=== PATIENT | female | born 1945 | race Caucasian/White ===

== ENCOUNTER 2020-09-12 16:05 | Emergency (ER) | payer MEDICARE ==
[~2020-09-12] VITALS: Ht 162.6 cm; Wt 66.5 kg
[~2020-09-12 16:05] MED LIST changes: -OMNIPAQUE 350 MG/ML, 100ML BOTTLE ONE
--- NOTE | 2020-09-12 16:35 | NUR ---
Pt in room, attached to BP and SpO2 at this time. IV start supplies at bedside but holding until MD sees pt secondary to pt having been seen, CT scanned, and labs drawn today at urgent care prior to arrival. Pt states MD dx of UTI provided at today but wants her to come here for further eval without further dx given. VSS, warm blanket provided and call light in reach.
--- NOTE | 2020-09-12 17:18 | NUR ---
Pt able to give clean catch UA sample. Gross blood in urine present without sediment or clots noted. science technicians at bedside at this time for lab draw as well.
[2020-09-12 17:32] LABS: MICROSCOPIC INDICATED
[2020-09-12 17:34] LABS: ALANINE AMINOTRANSFERASE 18 U/L (12-78); ALBUMIN 3.7 g/dL (3.4-5.0); ANION GAP 5 mmol/L (5-15); CHLORIDE 105 mmol/L (98-107); CREATININE 0.79 mg/dL (0.55-1.02)
[2020-09-12 17:36] LABS: ALKALINE PHOSPHATASE 32 U/L (45-117); BILIRUBIN,TOTAL 0.5 mg/dL (0.2-1.0)
[2020-09-12 17:37] LABS: BASOPHILS % (AUTO) 0 % (0-1); EOSINOPHILS % (AUTO) 1 % (1-7); LYMPHOCYTES % (AUTO) 26 % (22-44); MD NO; MEAN CORPUSCULAR HEMOGLOBIN 29.8 pg (27.0-34.8); MONOCYTES % (AUTO) 9 % (2-9); NEUTROPHILS % (AUTO) 64 % (42-75); PLATELET COUNT 202 x10^3/uL (130-400); RED CELL DISTRIBUTION WIDTH 13.5 % (9.6-15.2)
[2020-09-12 18:31] VITALS: BP 134/75
== END 2020-09-12 19:07 | disposition home or self-care (01) ==
LOC: ED 17:00
DX: C80.1 Malignant (primary) neoplasm, unspecified (principal); G89.29 Other chronic pain; R10.32 Left lower quadrant pain; R10.2 Pelvic and perineal pain; R11.2 Nausea with vomiting, unspecified; Z85.51 Personal history of malignant neoplasm of bladder; Z85.43 Personal history of malignant neoplasm of ovary
CPT/HCPCS: 36415; 80053; 81001; 85025; 87086; 99283

== ENCOUNTER → 2020-09-12 | Outpatient (CLI) | payer MEDICARE ==
[~2020-09-12] MED LIST: ACET-76 PO; ASCO100018 PO; ASPI-496 PO; CALC-112 PO; CEPH-368 PO; CETI-158 PO; CHOL2000 PO; CLOB50FO8 TP; GLUC-121 PO; IRON18TA PO; LORA1TAB PO; OMNIPAQUE 350 MG/ML, 100ML BOTTLE ONE; ONDA4TAB13 PO; OXYC-302 PO
[2020-09-12 14:23] LABS: ANION GAP 5 mmol/L (5-15); CALCIUM 9.1 mg/dL (8.5-10.1); CHLORIDE 106 mmol/L (98-107)
== END | disposition home or self-care (01) ==
LOC: RAD 13:52
PROVIDERS: ATTEND Nurse Practitioner Acute Care
DX: N13.30 Unspecified hydronephrosis (principal); N13.4 Hydroureter; N13.5 Crossing vessel and stricture of ureter without hydronephrosis; R10.9 Unspecified abdominal pain; N39.0 Urinary tract infection, site not specified; R11.2 Nausea with vomiting, unspecified; M62.08 Separation of muscle (nontraumatic), other site; Z90.710 Acquired absence of both cervix and uterus
CPT/HCPCS: 36415; 74177; 80048; Q9967

== ENCOUNTER → 2020-09-19 | Outpatient (CLI) | payer MEDICARE ==
[~2020-09-19] MED LIST changes: +Iron PO; +LISI-167 PO
[2020-09-19 09:39] LABS: INTERNATIONAL NORMALIZED RATIO 0.96 (0.93-1.1); PROTHROMBIN TIME 10.2 Seconds (9.6-11.5)
[2020-09-19 09:42] LABS: ALANINE AMINOTRANSFERASE 24 U/L (12-78); ALBUMIN 3.6 g/dL (3.4-5.0); ANION GAP 4 mmol/L (5-15); CALCIUM 8.7 mg/dL (8.5-10.1); CHLORIDE 112 mmol/L (98-107); CREATININE 0.63 mg/dL (0.55-1.02)
[2020-09-19 09:45] LABS: ALKALINE PHOSPHATASE 51 U/L (45-117); BILIRUBIN,TOTAL 0.4 mg/dL (0.2-1.0); TOTAL PROTEIN 6.9 g/dL (6.4-8.2)
[2020-09-19 09:57] LABS: BASOPHILS % (AUTO) 0 % (0-1); EOSINOPHILS % (AUTO) 3 % (1-7); LYMPHOCYTES % (AUTO) 26 % (22-44); MEAN CORPUSCULAR HEMOGLOBIN 30.1 pg (27.0-34.8); MEAN PLATELET VOLUME 11.1 fL (7.4-10.4); MONOCYTES % (AUTO) 8 % (2-9); NEUTROPHILS % (AUTO) 63 % (42-75); PLATELET COUNT 176 x10^3/uL (130-400); RED BLOOD COUNT 4.93 x10^6/uL (3.82-5.3); RED CELL DISTRIBUTION WIDTH 13.4 % (9.6-15.2)
[2020-09-19 10:53] LABS: MD NO
== END | disposition home or self-care (01) ==
LOC: STAR 08:06
PROVIDERS: ATTEND Specialist
DX: Z01.812 Encounter for preprocedural laboratory examination (principal); Z20.828 Contact with and (suspected) exposure to other viral communicable diseases; C67.9 Malignant neoplasm of bladder, unspecified; M51.34 Other intervertebral disc degeneration, thoracic region; R94.31 Abnormal electrocardiogram [ECG] [EKG]; I25.2 Old myocardial infarction
CPT/HCPCS: 71046; 80053; 85025; 85610; 85730; 87635; 93005

== ENCOUNTER 2020-10-15 12:38 | Outpatient (CLI) | payer MEDICARE ==
[~2020-10-15 12:38] MED LIST changes: -OXYC-302 PO; +OXYC1TAB14 PO
== END 2020-10-15 23:59 | disposition home or self-care (01) ==
LOC: RAD 12:38
PROVIDERS: ATTEND Nurse Practitioner Acute Care
DX: C56.9 Malignant neoplasm of unspecified ovary (principal); Z96.0 Presence of urogenital implants
CPT/HCPCS: 51600; 74430; Q9958

== ENCOUNTER → 2020-11-06 | Outpatient (CLI) | payer MEDICARE | END | disposition home or self-care (01) | LOC: RAD 11:33 | PROVIDERS: ATTEND Specialist | DX: C67.9 Malignant neoplasm of bladder, unspecified (principal); C56.9 Malignant neoplasm of unspecified ovary; R19.00 Intra-abdominal and pelvic swelling, mass and lump, unspecified site; R19.07 Generalized intra-abdominal and pelvic swelling, mass and lump; R97.1 Elevated cancer antigen 125 [CA 125]; R10.2 Pelvic and perineal pain; K43.9 Ventral hernia without obstruction or gangrene; R33.9 Retention of urine, unspecified; N20.0 Calculus of kidney | CPT/HCPCS: 74250 ==

== ENCOUNTER → 2020-11-13 | Outpatient (CLI) | payer MEDICARE ==
[~2020-11-13] MED LIST changes: +OMNIPAQUE 350 MG/ML, 100ML BOTTLE ONE
== END | disposition home or self-care (01) ==
LOC: CFH 12:15
PROVIDERS: ATTEND Specialist
DX: C56.9 Malignant neoplasm of unspecified ovary (principal); C67.9 Malignant neoplasm of bladder, unspecified; R19.00 Intra-abdominal and pelvic swelling, mass and lump, unspecified site; R19.07 Generalized intra-abdominal and pelvic swelling, mass and lump; R97.1 Elevated cancer antigen 125 [CA 125]; K43.9 Ventral hernia without obstruction or gangrene; R33.9 Retention of urine, unspecified; K21.9 Gastro-esophageal reflux disease without esophagitis; R10.2 Pelvic and perineal pain
CPT/HCPCS: 71260; 74177; Q9967

== ENCOUNTER 2020-11-18 09:02 | Day surgery (SDC) | payer MEDICARE ==
[~2020-11-18] VITALS: Ht 162.6 cm; Wt 60.9 kg
[~2020-11-18 09:02] MED LIST changes: -OMNIPAQUE 350 MG/ML, 100ML BOTTLE ONE
[2020-11-18] MEDS ORDERED: METO10TA2 PO (10:17)
[2020-11-18] MEDS ORDERED: OMEP10CA5 PO (10:17)
[2020-11-18] MEDS ORDERED: CIPR500T4 PO (10:17)
[2020-11-18] MEDS ORDERED: CHLORHEXIDINE 15 ML UDC ONE (10:22)
[2020-11-18] MEDS ORDERED: CHLORHEXIDINE 15 ML UDC MM ONE (10:30)
[2020-11-18 10:50] VITALS: BP 147/86
[2020-11-18] MEDS ORDERED: CEFOTETAN PMX 2GM/50ML 50 ML IVPB ONE (11:00)
[2020-11-18] MEDS ORDERED: LACTATED RINGERS 1,000 ML IV SCH (11:00)
[2020-11-18] MEDS ORDERED: FENTANYL PF 100 MCG/2ML ONE (11:05)
[2020-11-18] MEDS ORDERED: FENTANYL PF 100 MCG/2ML IV PRN (11:30)
[2020-11-18] MEDS ORDERED: OXYcodone 5 MG/5 ML ORAL.SOL UDC PO PRN (11:30)
[2020-11-18] MEDS ORDERED: ACETAMINOPHEN 325 MG TABLET PO PRN (11:30)
[2020-11-18] MEDS ORDERED: LORazepam 2 MG/ML, 1ML IVPush PRN (11:30)
[2020-11-18] MEDS ORDERED: PROMETHAZINE 25 MG/ML, 1ML IVPush PRN (11:30)
[2020-11-18] MEDS ORDERED: MEPERIDINE/PF 25MG/0.5ML IVPush PRN (11:30)
[2020-11-18] MEDS ORDERED: LABETALOL 5MG/ML, 20ML IV PRN (11:30)
[2020-11-18] MEDS ORDERED: HYDROmorphone 1 MG/ML, 1ML INJ IVPush PRN (11:30)
[2020-11-18] MEDS ORDERED: hydrALAzine 20 MG/ML, 1ML IV PRN (11:30)
[2020-11-18] MEDS ORDERED: ALBUTEROL SULFATE 2.5 MG/3 ML NPPB PRN (11:30)
[2020-11-18] MEDS ORDERED: ONDANSETRON 2MG/ML, 2ML ONE (12:44)
[2020-11-18] MEDS ORDERED: LIDOCAINE-MPF 2% ,5ML ONE (12:44)
[2020-11-18] MEDS ORDERED: PROPOFOL 10 MG/ML, 20ML ONE (12:44)
[2020-11-18] MEDS ORDERED: DEXAMETHASONE 4 MG/ML, 1ML ONE (16:34)
== END 2020-11-18 15:15 | disposition home or self-care (01) ==
LOC: OUT 09:02
PROVIDERS: ATTEND Specialist
DX: Z46.6 Encounter for fitting and adjustment of urinary device (principal); I10 Essential (primary) hypertension; I25.10 Atherosclerotic heart disease of native coronary artery without angina pectoris; D64.9 Anemia, unspecified; Z20.822 Contact with and (suspected) exposure to COVID-19; Z79.82 Long term (current) use of aspirin; Z85.51 Personal history of malignant neoplasm of bladder; Z79.899 Other long term (current) drug therapy; Z87.891 Personal history of nicotine dependence; Z88.0 Allergy status to penicillin; Z90.710 Acquired absence of both cervix and uterus; Z90.722 Acquired absence of ovaries, bilateral; Z90.49 Acquired absence of other specified parts of digestive tract
CPT/HCPCS: 52310; 87070; 87075; 87077; 87086; 87186; 87635; J1100; J2405; J2704; J3010; J7120

== ENCOUNTER 2021-01-01 12:31 | Outpatient (CLI) | payer MEDICARE ==
[~2021-01-01 12:31] MED LIST changes: +CIPR500T4 PO; +METO10TA2 PO; +OMEP10CA5 PO
== END 2021-01-01 23:59 | disposition home or self-care (01) ==
LOC: RAD 12:31
PROVIDERS: ATTEND Specialist
DX: C67.9 Malignant neoplasm of bladder, unspecified (principal); C56.9 Malignant neoplasm of unspecified ovary; R97.1 Elevated cancer antigen 125 [CA 125]; R10.2 Pelvic and perineal pain; N13.2 Hydronephrosis with renal and ureteral calculous obstruction; K43.9 Ventral hernia without obstruction or gangrene; R33.9 Retention of urine, unspecified; K21.9 Gastro-esophageal reflux disease without esophagitis; N39.0 Urinary tract infection, site not specified
CPT/HCPCS: 74270

== ENCOUNTER → 2021-01-14 | Outpatient (CLI) | payer MEDICARE ==
[2021-01-14 13:55] LABS: BASOPHILS % (AUTO) 1 % (0-1); EOSINOPHILS % (AUTO) 2 % (1-7); LYMPHOCYTES % (AUTO) 29 % (22-44); MD NO; MEAN CORPUSCULAR HEMOGLOBIN 28.2 pg (27.0-34.8); MEAN CORPUSCULAR HGB CONC 32.7 g/dL (32.4-35.8); MONOCYTES % (AUTO) 7 % (2-9); NEUTROPHILS % (AUTO) 61 % (42-75); PLATELET COUNT 161 x10^3/uL (130-400); RED CELL DISTRIBUTION WIDTH 17.2 % (9.6-15.2)
[2021-01-14 14:01] LABS: ALANINE AMINOTRANSFERASE 21 U/L (12-78); ALBUMIN 3.8 g/dL (3.4-5.0); ANION GAP 4 mmol/L (5-15); CALCIUM 8.5 mg/dL (8.5-10.1); CHLORIDE 109 mmol/L (98-107)
[2021-01-14 14:03] LABS: ALKALINE PHOSPHATASE 38 U/L (45-117); BILIRUBIN,TOTAL 0.3 mg/dL (0.2-1.0); INTERNATIONAL NORMALIZED RATIO 0.98 (0.93-1.1); PROTHROMBIN TIME 10.5 Seconds (9.6-11.5); TOTAL PROTEIN 7.4 g/dL (6.4-8.2)
== END | disposition home or self-care (01) ==
LOC: STAR 12:52
PROVIDERS: ATTEND Specialist
DX: Z01.818 Encounter for other preprocedural examination (principal); C67.9 Malignant neoplasm of bladder, unspecified; C56.9 Malignant neoplasm of unspecified ovary; R97.1 Elevated cancer antigen 125 [CA 125]; I49.1 Atrial premature depolarization; R94.31 Abnormal electrocardiogram [ECG] [EKG]; I25.2 Old myocardial infarction; Z20.822 Contact with and (suspected) exposure to COVID-19
CPT/HCPCS: 36415; 80053; 85025; 85610; 85730; 93005; U0003; U0005

== ENCOUNTER → 2021-03-12 | Outpatient (CLI) | payer MEDICARE ==
[~2021-03-12] MED LIST changes: +OMNIPAQUE 350 MG/ML, 100ML BOTTLE ONE
== END | disposition home or self-care (01) ==
LOC: CFH 08:39
PROVIDERS: ATTEND Specialist
DX: C67.9 Malignant neoplasm of bladder, unspecified (principal); C56.9 Malignant neoplasm of unspecified ovary; N13.30 Unspecified hydronephrosis; N13.9 Obstructive and reflux uropathy, unspecified; R97.1 Elevated cancer antigen 125 [CA 125]; R10.2 Pelvic and perineal pain; N13.2 Hydronephrosis with renal and ureteral calculous obstruction; N39.0 Urinary tract infection, site not specified; R11.2 Nausea with vomiting, unspecified; K21.9 Gastro-esophageal reflux disease without esophagitis; R33.9 Retention of urine, unspecified; Z90.49 Acquired absence of other specified parts of digestive tract
CPT/HCPCS: 71260; 74177; Q9967